=== PATIENT | female | born 1985 | race Caucasian/White ===

== ENCOUNTER 2017-05-13 21:42 | Emergency (ER) | payer OTHER ==
[~2017-05-13] VITALS: Ht 160 cm; Wt 80.0 kg
[2017-05-13 23:10] VITALS: BP 120/78; PULSE 81; RESP 20; TEMP 97.6; O2SAT 99
--- NOTE | 2017-05-13 23:34 | PD ---
HPI Chief Complaint: [employer] Problem/Complaint Time Seen by Provider: 23:07 Travel History International Travel<30 days: No Contact w/Intl Traveler<30days: No Traveled to known affect area: No History of Present Illness HPI 31-year-old female here for evaluation of left labial complaint. 2 days ago the patient felt a strain sensation in her left labia. Yesterday she noticed that her left labia appeared enlarged. Since then it has returned to normal size, however feels different to her. She has also noted some foul-smelling discharge and some suprapubic discomfort. She is and is in a monogamous relationship. She denies fevers or chills. No nausea or vomiting. PFSH Past Medical History Medical History: Denies Significant Hx Diminished Hearing: No Tetanus Vaccination: Unknown Influenza Vaccination: No ?: Unknown LMP: 04/25/2017 : 1 Para: 1 Past Surgical History Other Surgery: Yes (skull sx at ) Social History Alcohol Use: Yes (social) Tobacco Use: No Substance Use: No Allergies-Medications (Allergen,Severity, Reaction): Coded Allergies: No Known Allergies (Unverified , 05/13/17) Reported Meds & Prescriptions Reported Meds & Active Scripts Active No Active Prescriptions or Reported Medications Review of Systems Except as stated in HPI: all other systems reviewed are Neg Physical Exam Narrative GENERAL: Well-developed, well-nourished, comfortable, no apparent distress. SKIN: Focused skin assessment warm/dry. HEAD: Atraumatic. Normocephalic. EYES: Pupils equal and round. No scleral icterus. No injection or drainage. ENT: No nasal bleeding or discharge. Mucous membranes pink and moist. GASTROINTESTINAL: Abdomen soft, nondistended. Mild suprapubic tenderness. No hernias. : Exam performed in the presence of female nurse. Normal external genitalia with slight irritation over left labia without fluctuance or induration or any masses. No hernias. Skin/whitish/slightly foul-smelling vaginal discharge. Normal introitus. MUSCULOSKELETAL: No obvious deformities. No clubbing. No cyanosis. No edema. NEUROLOGICAL: Awake and alert. No obvious cranial nerve deficits. Motor grossly within normal limits. Normal speech. PSYCHIATRIC: Appropriate mood and affect; insight and judgment normal. Data Data Last Documented VS Vital Signs Date Time Temp Pulse Resp B/P (MAP) Pulse Ox O2 Delivery O2 Flow Rate FiO2 05/14/17 00:18 Room Air 05/13/17 23:10 97.6 81 20 99 Orders Orders Wet Prep Profile (05/13/17 23:23) Urinalysis - C+S If Indicated (05/13/17 23:23) Ed Urine Pregnancytest Poc (05/13/17 23:23) Basic Metabolic Panel (Bmp) (05/14/17 00:09) Complete Blood Count With Diff (05/14/17 00:09) Prothrombin Time / Inr (Pt) (05/14/17 00:09) Act Partial Throm Time (Ptt) (05/14/17 00:09) Iv Access Insert/Monitor (05/14/17 00:09) Ecg Monitoring (05/14/17 00:09) Oximetry (05/14/17 00:09) Sodium Chloride 0.9% Flush (Ns Flush) (05/14/17 00:15) Us Pelvis Comp W Doppler (05/14/17 ) Labs Laboratory Tests Test 05/13/17 23:28 05/14/17 00:20 Urine Color LIGHT-YELLOW Urine Turbidity CLEAR Urine pH 7.0 Urine Specific [place] 1.011 Urine Protein NEG mg/dL Urine Glucose (UA) NEG mg/dL Urine Ketones NEG mg/dL Urine Occult Blood NEG Urine Nitrite NEG Urine Bilirubin NEG Urine Urobilinogen LESS THAN 2.0 MG/DL Urine Leukocyte Esterase LARGE Urine RBC 1 /hpf Urine WBC 1 /hpf Urine Squamous Epithelial Cells 1 /hpf Microscopic Urinalysis Comment CULT NOT INDICATED Clue Cells (Wet Prep) NONE SEEN Vaginal Trichomonas (Wet Prep) NONE SEEN Vaginal Yeast (Wet Prep) NONE SEEN White Blood Count 8.5 TH/MM3 Red Blood Count 4.19 MIL/MM3 Hemoglobin 13.0 GM/DL Hematocrit 38.8 % Mean Corpuscular Volume 92.6 FL Mean Corpuscular Hemoglobin 31.0 PG Mean Corpuscular Hemoglobin Concent 33.4 % Red Cell Distribution Width 13.2 % Platelet Count 343 TH/MM3 Mean Platelet Volume 7.6 FL Neutrophils (%) (Auto) 41.5 % Lymphocytes (%) (Auto) 45.0 % Monocytes (%) (Auto) 11.0 % Eosinophils (%) (Auto) 2.0 % Basophils (%) (Auto) 0.5 % Neutrophils # (Auto) 3.5 TH/MM3 Lymphocytes # (Auto) 3.8 TH/MM3 Monocytes # (Auto) 0.9 TH/MM3 Eosinophils # (Auto) 0.2 TH/MM3 Basophils # (Auto) 0.0 TH/MM3 CBC Comment DIFF FINAL Differential Comment Prothrombin Time 10.2 SEC Prothromb Time International Ratio 0.9 RATIO Activated Partial Thromboplast Time 26.5 SEC Blood Urea Nitrogen 11 MG/DL Creatinine 0.88 MG/DL Random Glucose 100 MG/DL Calcium Level 8.9 MG/DL Sodium Level 139 MEQ/L Potassium Level 3.9 MEQ/L Chloride Level 102 MEQ/L Carbon Dioxide Level 29.0 MEQ/L Anion Gap 8 MEQ/L Estimat Glomerular Filtration Rate 74 ML/MIN [facility] Medical Decision Making Medical Screen Exam Complete: Yes Emergency Medical Condition: Yes Differential Diagnosis Yeast infection, BV, Bartholin's cyst unlikely, hernia likely, STD unlikely Narrative Course Vital signs show heart rate 81, blood pressure 120/70, pulse ox 99% on room air , oral temp of 97.6F. [employer] exam performed in the presence of a female nurse in shows normal-appearing external genitalia were normal introitus with a small amount of whitish discharge with slight foul smell. Bilateral labia is appear normal. No evidence for Bartholin's cyst. No evidence for hernia. No evidence for abscess. Wet prep is negative for yeast, negative for clue cells, negative for Trichomonas. UA is not suggestive of UTI. Urine is negative. The patient does have slight suprapubic and left lower quadrant/pelvic tenderness. I do not believe that there is an acute intra-abdominal/surgical process, however labs will be ordered as well as a pelvic ultrasound to further investigate the patient's discomfort. CBC is unremarkable. BMP is unremarkable. At approximately 1:00 AM at the end of my shift the patient was signed out to my PA Abner Ragland to follow up with pelvic ultrasound. Pelvic ultrasound shows nonemergent findings, then the patient can follow-up as an outpatient with a digital ad trafficker. Scripts No Active Prescriptions or Reported Meds Aguilar Mcgill MD May 13, 2017 23:34
[2017-05-13 23:45] LABS: BLOOD, URINE NEG (NEG); COMMENT (UR) CULT NOT INDICATED; CULTURE IF INDICATED CULT NOT INDICATED; GLUCOSE,URINE NEG (NEG); KETONE, URINE NEG (NEG); NITRITE,URINE NEG (NEG); SQUAMOUS EPITHELIAL CELL URINE 1 /hpf (0-5); URINE COLOR LIGHT-YELLOW (YELLW/STRAW)
[2017-05-14] MEDS ORDERED: SODIUM CHLORIDE 0.9% FLUSH 10 ML FLUSH IV FLUSH PRN (00:15)
[2017-05-14 00:45] LABS: AUTOMATED NEUTROPHIL # 3.5 TH/MM3 (1.8-7.7); BASOPHIL % 0.5 % (0.0-2.0); EOSINOPHIL # 0.2 TH/MM3 (0-0.4); HEMATOCRIT 38.8 % (35.0-46.0); HEMO FLAGS DIFF FINAL; LYMPHOCYTE # 3.8 TH/MM3 (1.0-4.8); MEAN CELL VOLUME 92.6 FL (80.0-100.0); MEAN CORPUSCULAR HGB CONC 33.4 % (32.0-36.0); NEUT % 41.5 % (16.0-70.0); PLATELET COUNT 343 TH/MM3 (150-450); RED BLOOD COUNT 4.19 MIL/MM3 (4.00-5.30); RED CELL DISTRIBUTION WIDTH 13.2 % (11.6-17.2); WHITE BLOOD COUNT 8.5 TH/MM3 (4.0-11.0)
[2017-05-14 01:02] LABS: INTERNATIONAL NORMALIZED RATIO 0.9 RATIO; PROTHROMBIN TIME - PATIENT 10.2 SEC (9.8-11.6)
[2017-05-14 01:05] LABS: APTT (PATIENT) 26.5 SEC (24.3-30.1)
[2017-05-14 01:10] LABS: POTASSIUM 3.9 MEQ/L (3.5-5.1)
[2017-05-14 01:11] VITALS: BP 122/79; PULSE 68; RESP 18; O2SAT 99
--- NOTE | 2017-05-14 02:28 | RADRPT ---
EXAM DATE/TIME: 05/14/2017 01:48 [place] COMPARISON: No previous studies available for comparison. INDICATIONS : Pain. MEDICAL HISTORY : Pelvic pain. Vaginal discharge. SURGICAL HISTORY : Skull surgery at . ENCOUNTER: Initial ACUITY: 3 days PAIN SCORE: 4/10 LOCATION: Bilateral pelvis MEASUREMENTS: UTERUS: 10.0 x 6.6 x 6.3 cm ENDOMETRIAL STRIPE: 13 mm RIGHT OVARY: 3.1 x 2.0 x 1.8 cm LEFT OVARY: 4.5 x 4.1 x 2.1 cm FINDINGS: UTERUS: The uterus is retroverted. The myometrium has homogeneous echotexture without mass. Endometrial strip e is mildly heterogeneous measuring 13 mm RIGHT OVARY: Ovary contains no mass or significant cystic lesion. There is a small peripheral echogenic area witho ut shadowing of uncertain significance likely none. LEFT OVARY: Ovary contains no mass or significant cystic lesion. MISCELLANEOUS: Minimal free fluid. CONCLUSION: Unremarkable study. No concerning masses are identified. Rogelio Bains MD on May 14, 2017 at 2:24 Board Certified Radiologist. This report was verified electronically.
[2017-05-14 02:59] VITALS: BP 111/66; PULSE 72; RESP 18; O2SAT 99
--- NOTE | 2017-05-14 03:32 | PD ---
Physical Exam Date Seen by Provider: May 14, 2017 Time Seen by Provider: 03:29 Data Data Last Documented VS Vital Signs Date Time Temp Pulse Resp B/P (MAP) Pulse Ox O2 Delivery O2 Flow Rate FiO2 05/14/17 00:18 Room Air 05/13/17 23:10 97.6 81 20 99 Orders Orders Wet Prep Profile (05/13/17 23:23) Urinalysis - C+S If Indicated (05/13/17 23:23) Ed Urine Pregnancytest Poc (05/13/17 23:23) Basic Metabolic Panel (Bmp) (05/14/17 00:09) Complete Blood Count With Diff (05/14/17 00:09) Prothrombin Time / Inr (Pt) (05/14/17 00:09) Act Partial Throm Time (Ptt) (05/14/17 00:09) Iv Access Insert/Monitor (05/14/17 00:09) Ecg Monitoring (05/14/17 00:09) Oximetry (05/14/17 00:09) Sodium Chloride 0.9% Flush (Ns Flush) (05/14/17 00:15) Us Pelvis Comp W Doppler (05/14/17 ) Labs Laboratory Tests Test 05/13/17 23:28 05/14/17 00:20 Urine Color LIGHT-YELLOW Urine Turbidity CLEAR Urine pH 7.0 Urine Specific [place] 1.011 Urine Protein NEG mg/dL Urine Glucose (UA) NEG mg/dL Urine Ketones NEG mg/dL Urine Occult Blood NEG Urine Nitrite NEG Urine Bilirubin NEG Urine Urobilinogen LESS THAN 2.0 MG/DL Urine Leukocyte Esterase LARGE Urine RBC 1 /hpf Urine WBC 1 /hpf Urine Squamous Epithelial Cells 1 /hpf Microscopic Urinalysis Comment CULT NOT INDICATED Clue Cells (Wet Prep) NONE SEEN Vaginal Trichomonas (Wet Prep) NONE SEEN Vaginal Yeast (Wet Prep) NONE SEEN White Blood Count 8.5 TH/MM3 Red Blood Count 4.19 MIL/MM3 Hemoglobin 13.0 GM/DL Hematocrit 38.8 % Mean Corpuscular Volume 92.6 FL Mean Corpuscular Hemoglobin 31.0 PG Mean Corpuscular Hemoglobin Concent 33.4 % Red Cell Distribution Width 13.2 % Platelet Count 343 TH/MM3 Mean Platelet Volume 7.6 FL Neutrophils (%) (Auto) 41.5 % Lymphocytes (%) (Auto) 45.0 % Monocytes (%) (Auto) 11.0 % Eosinophils (%) (Auto) 2.0 % Basophils (%) (Auto) 0.5 % Neutrophils # (Auto) 3.5 TH/MM3 Lymphocytes # (Auto) 3.8 TH/MM3 Monocytes # (Auto) 0.9 TH/MM3 Eosinophils # (Auto) 0.2 TH/MM3 Basophils # (Auto) 0.0 TH/MM3 CBC Comment DIFF FINAL Differential Comment Prothrombin Time 10.2 SEC Prothromb Time International Ratio 0.9 RATIO Activated Partial Thromboplast Time 26.5 SEC Blood Urea Nitrogen 11 MG/DL Creatinine 0.88 MG/DL Random Glucose 100 MG/DL Calcium Level 8.9 MG/DL Sodium Level 139 MEQ/L Potassium Level 3.9 MEQ/L Chloride Level 102 MEQ/L Carbon Dioxide Level 29.0 MEQ/L Anion Gap 8 MEQ/L Estimat Glomerular Filtration Rate 74 ML/MIN [facility] Medical Record Reviewed: Yes Supervised Visit with CHARLETTE: Yes Interpretation(s) Laboratory Tests Test 05/13/17 23:28 05/14/17 00:20 Urine Color LIGHT-YELLOW Urine Turbidity CLEAR Urine pH 7.0 Urine Specific [place] 1.011 Urine Protein NEG mg/dL Urine Glucose (UA) NEG mg/dL Urine Ketones NEG mg/dL Urine Occult Blood NEG Urine Nitrite NEG Urine Bilirubin NEG Urine Urobilinogen LESS THAN 2.0 MG/DL Urine Leukocyte Esterase LARGE Urine RBC 1 /hpf Urine WBC 1 /hpf Urine Squamous Epithelial Cells 1 /hpf Microscopic Urinalysis Comment CULT NOT INDICATED Clue Cells (Wet Prep) NONE SEEN Vaginal Trichomonas (Wet Prep) NONE SEEN Vaginal Yeast (Wet Prep) NONE SEEN White Blood Count 8.5 TH/MM3 Red Blood Count 4.19 MIL/MM3 Hemoglobin 13.0 GM/DL Hematocrit 38.8 % Mean Corpuscular Volume 92.6 FL Mean Corpuscular Hemoglobin 31.0 PG Mean Corpuscular Hemoglobin Concent 33.4 % Red Cell Distribution Width 13.2 % Platelet Count 343 TH/MM3 Mean Platelet Volume 7.6 FL Neutrophils (%) (Auto) 41.5 % Lymphocytes (%) (Auto) 45.0 % Monocytes (%) (Auto) 11.0 % Eosinophils (%) (Auto) 2.0 % Basophils (%) (Auto) 0.5 % Neutrophils # (Auto) 3.5 TH/MM3 Lymphocytes # (Auto) 3.8 TH/MM3 Monocytes # (Auto) 0.9 TH/MM3 Eosinophils # (Auto) 0.2 TH/MM3 Basophils # (Auto) 0.0 TH/MM3 CBC Comment DIFF FINAL Differential Comment Prothrombin Time 10.2 SEC Prothromb Time International Ratio 0.9 RATIO Activated Partial Thromboplast Time 26.5 SEC Blood Urea Nitrogen 11 MG/DL Creatinine 0.88 MG/DL Random Glucose 100 MG/DL Calcium Level 8.9 MG/DL Sodium Level 139 MEQ/L Potassium Level 3.9 MEQ/L Chloride Level 102 MEQ/L Carbon Dioxide Level 29.0 MEQ/L Anion Gap 8 MEQ/L Estimat Glomerular Filtration Rate 74 ML/MIN Last 24 hours Impressions Pelvis Ultrasound 05/14/17 0000 Signed Impressions: Service Date/Time: Sunday, May 14, 2017 01:48 - CONCLUSION: Unremarkable study. No concerning masses are identified. Rogelio Bains MD Differential Diagnosis . Narrative Course I reviewed the patient's laboratory testing as well as her ultrasound. There is no signs of any overt infection, ruptured ovarian cysts or free fluid in the pelvis. The patient is resting comfortable in examination room. A padded long discussion with the patient and her significant other. She is aware that she' ll need to follow-up with her primary care doctor or a cyber security for further evaluation and testing. At this time I believe the patient is medically stable for discharge. The etiology of her symptoms are not clear at this point. She is aware of this and will follow-up closely. She is aware that if symptoms change her symptoms worsen she may return to the ER at any time for further evaluation and treatment. Patient verbally states understanding and agrees with treatment plan of follow-up. Diagnosis Primary Impression: pelvic pain Patient Instructions: General Instructions Additional Instruction: Rest. Increase fluids. Tylenol or Advil for any discomfort. Follow-up with your doctor in the next 2-3 days. Return to the ER if symptoms worsen or problems develop. Med/Other Pt SpecificInfo: No Meds Exist/No RX given Scripts No Active Prescriptions or Reported Meds Disposition: DISCHARGE HOME Condition: Stable [place] [employer] May 14, 2017 03:32
[2017-05-14 03:37] VITALS: BP 110/89
== END 2017-05-14 03:43 | disposition home or self-care (01) ==
LOC: NEPD 21:42
DX: R10.2 Pelvic and perineal pain (principal)
CPT/HCPCS: 76856; 80048; 81001; 84703; 85025; 85610; 85730; 87210; 93975; 99284